=== PATIENT | female | born 1990 | race Caucasian/White ===

== ENCOUNTER 2018-10-16 21:09 | Emergency (ER) | payer OTHER ==
[2018-10-16 21:29] VITALS: BP 126/84
--- NOTE | 2018-10-16 21:31 | UC ---
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 She states it has continued and she came in [facility] because 2 hours prior to arrival it spiked 204. She has some body aches but no other complaints. She's had no recent cold symptoms, denies any neck pain, has a headache, no urinary symptoms. Her periods are regular and she is on control. She has not been around anyone else who is ill. Denies sore throat. - History of Current Complaint Chief Complaint: UCGeneralIllness Time Seen by Provider: 10/16/18 21:16 Hx Obtained From: Patient Hx Last Menstrual Period: 2 WEEKS AGO Onset/Duration: Started Days Ago - Started 4 days ago on Friday. Timing: Constant - Fever has been waxing and waning for the past 4 days. Initial Severity: Mild Current Severity: Moderate Pain Intensity: 0 Aggravating Factors: Nothing Alleviating Factors: OTC Medicine - [id number] medicine will bring the fever down however when it wears off her fever elevates. Associated Signs and Symptoms: Chills, Headache, Myalgia Related History: Exposure to: - No known exposure to any tick bites - Allergy/Home Medications Allergies/Adverse Reactions: Allergies Allergy/AdvReac Type Severity Reaction Status Date / Time No Known Allergies Allergy Verified 10/16/18 21:26 Home Medications: Home Medications Acetaminophen [Tylenol] 325 mg PO Q6HR PRN 10/16/18 [History Confirmed 10/16/18] Bcp 1 tab PO DAILY 10/16/18 [History] Escitalopram Oxalate [Lexapro 10 mg] 10 mg PO DAILY 10/16/18 [History Confirmed 10/16/18] PMH/Surg Hx/FS Hx/Imm Hx Previously Healthy: Yes - Surgical History Surgical History: None - Family History Known Family History: Positive: Non-Contributory - Social History Occupation: Student Alcohol Use: Weekly Substance Use Type: Marijuana Substance Use Comment - Amount & Last Used: OCCASIONALLY Smoking Status (MU): Never Smoked Tobacco Review of Systems All Other Systems Reviewed And Are Negative: Yes Constitutional: Positive: Fever, Chills Musculoskeletal: Positive: Myalgia Neurological: Positive: Headache Is Patient Immunocompromised?: No Physical Exam Triage Information Reviewed: Yes Appearance: Well-Appearing, No Pain Distress, Well-Nourished, Other: - Pt does not appear ill. She is alert, talking, interacting with her friend with whom she came here. Vital Signs: Initial Vital Signs Temp 101 F 10/16/18 21:27 Pulse 102 10/16/18 21:27 Resp 18 10/16/18 21:27 BP 126/84 10/16/18 21:27 Pulse Ox 98 10/16/18 21:27 Vital Signs Reviewed: Yes Eyes: Positive: Conjunctiva Clear ENT: Positive: Pharyngeal erythema - . Minimal pharyngeal erythema but no exudate, no tonsillar enlargement.., TMs normal, Uvula midline Neck: Positive: Supple, Nontender, No Lymphadenopathy, Other: - Able to do chin to chest without difficulty and with no pain.. Negative: Nuchal Rigidity, Tenderness @, Enlarged Nodes @ Respiratory: Positive: Lungs clear, Normal breath sounds, No respiratory distress, No accessory muscle use Cardiovascular: Positive: No Murmur, Pulses Normal, Brisk Capillary Refill, Tachycardia Abdomen Description: Positive: Nontender, No Organomegaly, Soft. Negative: CVA Tenderness (R), CVA Tenderness (L), Distended, Guarding, Hepatomegaly, McBurney' s Point Tenderness, Peritoneal Signs, Splenomegaly Bowel Sounds: Positive: Present Musculoskeletal: Positive: Strength Intact, ROM Intact, No Edema Neurological: Positive: Alert, Muscle Tone Normal Psychological Exam: Normal Skin Exam: Normal Course/Dx - Course Course Of Treatment: Chest x-ray:negative as interpreted by myself and Dr. Carlson. Rapid strep:negative Urine test:negative Urinalysis: 2+ leukocytes and trace of nonhemolyzed blood. After discussion with Dr. Carlson, and the positive urinalysis, I spoke with the patient again. She stated she had been urinating more frequently but she had also been drinking a lot of water. Denies any burning on urination. She states the urine sample was a clean catch sample. She again denies neck pain, no tick bites, no pelvic pain or abnormal vaginal discharge. - Diagnoses Provider Diagnosis: Kidney infection Is Visit Related: No Discharge - Sign-Out/Discharge Documenting (check all that apply): Patient Departure All imaging exams completed and their final reports reviewed: No - Discharge Plan Condition: Fair Disposition: HOME Prescriptions: Cephalexin CAP* [Keflex 500 CAP*] 500 mg PO TID 7 Days #20 cap Patient Education Materials: Kidney Infection (ED) Referrals: [facility] [Outside] No Primary Care Phys,NOPCP [Primary Care Provider] - Additional Instructions: Increase fluids, definite follow-up in the emergency room if you have any worsening symptoms over the weekend. Definite follow-up with [facility] or the [facility] [place] or the emergency room if you still have a fever on Friday. - Billing Disposition and Condition Condition: FAIR Disposition: Home
[2018-10-16] MEDS ORDERED: Cephalexin CAP* 500 MG PO ONE (21:50)
--- NOTE | 2018-10-17 11:29 | UC ---
- Progress Note Progress Note: Patient Name: ABDIRAHMAN IBARRA Medical Record#: [id number] Ordering Physician: Waleska Cintron NP Acct.#: [id number] : 1990 Age: 28 Sex: F Location: [facility] Exam Date: 10/16/182131 ADM Status: DEP ER Order Information: CHEST PA & LAT 2 VWS Accession Number: [id number] CPT: 46216 INDICATION: Shortness of breath. COMPARISON: None TECHNIQUE: PA and lateral views of the chest were obtained. FINDINGS: The heart and mediastinum are normal in size and contour. The lungs are grossly clear. There is no evidence of large pleural effusion. Visualized bones are normal for the patient's age. There is no radiographic evidence of free air beneath the diaphragm IMPRESSION: No radiographic evidence of acute cardiopulmonary disease. R1NF Preliminary Imaging Read R1NF <Electronically signed by Jacky Mendoza MD in OV> 10/17/18 1117 Dictated By: Jacky Mendoza MD Dictated Date/Time: 10/17/18 1117 Transcribed Date/Time: 10/17/18 111 Copy to: CC:Jos Carlson MD; Waleska Cintron NP; No Primary Care Phys,NOPCP Imaging - [facility] Imaging - [facility] Imaging - [facility] [address] [address] ph ([phone]) ph ([phone]) ph ([phone]) This report is only to be considered final once signed by the Provider(s) as displayed in the "<Electronically Signed by >" field (s). Absence of a signature indicates the report is in a draft status and still needs to be finalized. In the event this document was created by someone other than the signing Provider, the individual initiating the document will be listed in the "Entered by:" or "Dictated by:" salvador. 1 of 2 Course/Dx - Diagnoses Provider Diagnoses: Kidney infection Discharge - Sign-Out/Discharge Documenting (check all that apply): Post-Discharge Follow Up All imaging exams completed and their final reports reviewed: Yes - Discharge Plan Condition: Fair Disposition: HOME Prescriptions: Cephalexin CAP* [Keflex 500 CAP*] 500 mg PO TID 7 Days #20 cap Patient Education Materials: Kidney Infection (ED) Referrals: [facility] [Outside] No Primary Care Phys,NOPCP [Primary Care Provider] - Additional Instructions: Increase fluids, definite follow-up in the emergency room if you have any worsening symptoms over the weekend. Definite follow-up with [facility] or the [facility] or the emergency room if you still have a fever on Friday. - Billing Disposition and Condition Condition: FAIR Disposition: Home
--- NOTE | 2018-10-17 12:12 | UC ---
- Progress Note Progress Note: Attempted to call patient to see how she is doing today. Unable to leave a message because her mailbox is full. Will try again later. Course/Dx - Course Course Of Treatment: CXR report:FINDINGS: The heart and mediastinum are normal in size and contour. The lungs are grossly clear. There is no evidence of large pleural effusion. Visualized bones are normal for the patient's age. There is no radiographic evidence of free air beneath the diaphragm IMPRESSION: No radiographic evidence of acute cardiopulmonary disease. - Diagnoses Provider Diagnoses: Kidney infection Is Visit Related: No Discharge - Sign-Out/Discharge Documenting (check all that apply): Post-Discharge Follow Up All imaging exams completed and their final reports reviewed: No - Discharge Plan Condition: Fair Disposition: HOME Prescriptions: Cephalexin CAP* [Keflex 500 CAP*] 500 mg PO TID 7 Days #20 cap Patient Education Materials: Kidney Infection (ED) Referrals: [facility] [Outside] No Primary Care Phys,NOPCP [Primary Care Provider] - Additional Instructions: Increase fluids, definite follow-up in the emergency room if you have any worsening symptoms over the weekend. Definite follow-up with [facility] or the [facility] or the emergency room if you still have a fever on Friday. - Billing Disposition and Condition Condition: FAIR Disposition: Home
--- NOTE | 2018-10-17 15:01 | UC ---
- Progress Note Progress Note: I spoke with patient. She is feeling better today. Fever is only at 100. She continues to stay well- hydrated. She is to follow up at the [facility] Friday if continued fever. Course/Dx - Diagnoses Provider Diagnoses: Kidney infection Is Visit Related: No Discharge - Sign-Out/Discharge Documenting (check all that apply): Post-Discharge Follow Up All imaging exams completed and their final reports reviewed: No - Discharge Plan Condition: Fair Disposition: HOME Prescriptions: Cephalexin CAP* [Keflex 500 CAP*] 500 mg PO TID 7 Days #20 cap Patient Education Materials: Kidney Infection (ED) Referrals: [facility] [Outside] No Primary Care Phys,NOPCP [Primary Care Provider] - Additional Instructions: Increase fluids, definite follow-up in the emergency room if you have any worsening symptoms over the weekend. Definite follow-up with [facility] or the [facility] [place] or the emergency room if you still have a fever on Friday. - Billing Disposition and Condition Condition: FAIR Disposition: Home
--- NOTE | 2018-10-18 17:09 | UC ---
- Progress Note Progress Note: urine no growth no change in management 10/18/18 Course/Dx - Diagnoses Provider Diagnoses: Kidney infection Is Visit Related: No Discharge - Sign-Out/Discharge Documenting (check all that apply): Post-Discharge Follow Up All imaging exams completed and their final reports reviewed: No - Discharge Plan Condition: Fair Disposition: HOME Prescriptions: Cephalexin CAP* [Keflex 500 CAP*] 500 mg PO TID 7 Days #20 cap Patient Education Materials: Kidney Infection (ED) Referrals: [facility] [Outside] No Primary Care Phys,NOPCP [Primary Care Provider] - Additional Instructions: Increase fluids, definite follow-up in the emergency room if you have any worsening symptoms over the weekend. Definite follow-up with [facility] or the [facility] [place] or the emergency room if you still have a fever on Friday. - Billing Disposition and Condition Condition: FAIR Disposition: Home
== END 2018-10-16 22:05 | disposition home or self-care (01) ==
LOC: UCEAST 21:09
DX: N15.9 Renal tubulo-interstitial disease, unspecified (principal)
CPT/HCPCS: 71046; 81002; 81025; 87086; 87651; 99202; A9270-GY; G0463